=== PATIENT | female | born 1990 | race Caucasian/White ===

== ENCOUNTER 2024-02-01 20:36 | Inpatient (IN) ==
[2024-02-01] MEDS ORDERED: LIDOCAINE 1% LOCAL 20 ML VIAL INFIL PRN (21:07)
[2024-02-01] MEDS ORDERED: OXYTOCIN 30 UNITS/NSS 30 UNITS/500 ML BAG IV PRN (21:07)
[2024-02-01] MEDS: LACTATED RINGER'S 1,000 ML IV PRN (21:46)
[2024-02-01] MEDS: PENICILLIN GK 6 MU in DEXTROSE 5% 250 ML IV STA (21:47)
[2024-02-01 21:51] LABS: Hematocrit (blood only) 35.8 % (37.0-47.0); Mean Corpuscular Hemoglobin 30.8 pg (25.0-34.0); Mean Corpuscular Hgb Conc 33.5 g/dL (32.0-36.0); Mean Platelet Volume 10.5 fL (9.4-12.4); Platelet Count 274 K/uL (130-400); RDW Coefficient of Variation 13.3 % (11.5-14.5); RDW Standard Deviation 44.6 fL (36.4-46.3); Red Blood Count 3.89 M/uL (4.20-5.40); White Blood Count 12.43 K/ul (4.8-10.8)
[2024-02-02] MEDS ORDERED: diphenhydrAMINE 50 MG/ML VIAL IV PRN (01:45)
[2024-02-02] MEDS ORDERED: fentaNYL citrate PF 100 MCG/2 ML VIAL EPI PRN (01:45)
[2024-02-02] MEDS ORDERED: NALBUPHINE HCL 5 MG in SYRINGE 0 ML IV PRN (01:45)
[2024-02-02] MEDS ORDERED: BUPIVACAINE 0.25% PF 30 ML VIAL EPI PRN (01:45)
[2024-02-02] MEDS ORDERED: ePHEDrine sulfate 50 MG/ML AMP IV PRN (01:45)
[2024-02-02] MEDS ORDERED: NALOXONE HCL 0.4 MG/1 ML VIAL/CARP IV PRN (01:45)
[2024-02-02] MEDS ORDERED: LIDOCAINE 2% MPF LOCAL 5 ML VIAL EPI PRN (01:45)
[2024-02-02] MEDS ORDERED: NALOXONE HCL 1 MG in SODIUM CHLORIDE 0.9% 1,000 ML IV PRN (01:45)
[2024-02-02] MEDS ORDERED: SODIUM CHLORIDE 0.9% PF INJ 10 ML VIAL EPI PRN (01:45)
[2024-02-02] MEDS ORDERED: ROPIVACAINE 0.5% PF 5 MG/ML 20 ML VIAL EPI PRN (01:45)
--- NOTE | 2024-02-02 01:45 | Anesthesiology Consultation ---
Date of Service February 02, 2024 Assessment & Plan (1) Encounter for pre-operative examination: Chart Review Chart Review: Patient NOT seen in Pre Admission Testing and Acceptable Risk for Labor Epidural Consults Requested none History Height/Weight Height: 5 ft 7 in Weight: 107.955 kg Allergies Allergy/AdvReac Type Severity Reaction Status Date / Time No Known Allergies Allergy Verified 01/29/24 08:59 Medications Home Medications Medication Instructions Recorded Confirmed Last Taken vit 168-iron 27 mg-folic 1 cap PO 1XD 06/06/23 02/01/24 02/01/24 09:00 acid 800 mcg-omega3 235 mg capsule (One-A-Day -1) Active Medications Generic Name Dose Route Start Last Admin Trade Name Freq PRN Reason Stop Dose Admin Lactated Ringer's 1,000 mls @ 125 mls/hr 02/01/24 21:07 02/01/24 21:46 Lr IV 02/03/24 21:06 125 mls/hr .Q8H PRN Administration L&D Protocol Protocol Past Medical History Medical History Anxiety Patient states that she stopped taking anxiety medication when she got . No pertinent past medical history Past Family History Family History Mother Hypertension Father Hypertension Past Surgical History Surgical History No pertinent past surgical history Social History Smoking Status: Never smoker Hx Alcohol Use: No Hx Substance Use: No substance use type: former substance user Physical Exam Vital Signs Last Vital Signs Temp 98.2 F 02/01/24 22:47 Pulse 68 02/01/24 23:44 Resp 18 02/01/24 20:51 BP 141/73 H 02/01/24 23:44 Testing Laboratory Results 02/01/24 21:27 Blood Type A Positive 02/01/24 Unknown Antibody Screen NEGATIVE 02/01/24 Unknown
[2024-02-02] MEDS: PENICILLIN GK 3 MU in DEXTROSE 5% 100 ML IV PRN (02:00)
[2024-02-02] MEDS: fentANYL 2 MCG/ML BUPIVacaine 0.125%-NSS 100ML BAG ONE ×2 (02:13→14:51)
[2024-02-02] MEDS: LIDOCAINE 2%/EPINEPHRINE 1:200,000 20 ML PF ONE (02:20)
[2024-02-02] MEDS: fentaNYL citrate PF 100 MCG/2 ML VIAL ONE (02:21)
[2024-02-02] MEDS: fentaNYL citrate PF 100 MCG/2 ML VIAL EPI STA (02:21)
[2024-02-02] MEDS: BUPIVACAINE 0.25% PF 30 ML VIAL EPI STA (02:21)
[2024-02-02] MEDS: SODIUM CHLORIDE 0.9% PF INJ 10 ML VIAL EPI STA (02:21)
[2024-02-02] MEDS: LIDOCAINE 2%/EPINEPHRINE 1:200,000 20 ML PF EPI STA (02:21)
[2024-02-02] MEDS: ePHEDrine sulfate 50 MG/ML AMP ONE (02:22)
[2024-02-02] MEDS: SODIUM CHLORIDE 0.9% PF INJ 10 ML VIAL ONE (02:22)
[2024-02-02] MEDS: BUPIVACAINE 0.25% PF 30 ML VIAL ONE (02:22)
[2024-02-02] MEDS ORDERED: NURSING L&D Epidural Breakthrough Pain Update ONE (07:01)
[2024-02-02] MEDS: fentANYL 2 MCG/ML BUPIVacaine 0.125%-NSS 100ML BAG EPI PRN (08:50)
--- NOTE | 2024-02-02 16:07 | Labor Progress Brief Note ---
Date of Service February 02, 2024 Patient has been pushing for 3 hours heart rate is category 1 she is at +2 station I have offered her the vacuum for assistance her bladder was just drained on exam the baby is in occiput anterior position and +2 I worry that she is getting somewhat fatigued and I have relayed this to her certainly this is not a mandatory situation I have advised her the risks of the vacuum including hematoma I have given her some time to talk to her about this and her [id number] discussed risks and benefits I am just worried she is fatiguing may not be able to help us with the vacuum if she gets too fatigued Assessment & Plan Admission and Anticipated Discharge Date Admission Date: February 01, 2024 Results & Data Vital Signs (Past 12 Hours) Vital Signs Temp Pulse Resp BP Pulse Ox 02/02/24 16:00 92 H 99 02/02/24 15:55 92 H 98 02/02/24 15:54 103 H 93 02/02/24 15:52 94 H 131/86 02/02/24 15:50 83 99 02/02/24 15:45 97 H 99 02/02/24 15:40 106 H 99 02/02/24 15:35 108 H 100 02/02/24 15:30 115 H 20 99 02/02/24 15:25 107 H 100 02/02/24 15:21 95 H 142/67 H 02/02/24 15:20 93 H 100 02/02/24 15:16 109 H 89 L 02/02/24 15:15 83 100 02/02/24 15:12 98.1 F 02/02/24 15:11 105 H 84 L 02/02/24 15:10 85 100 02/02/24 15:07 85 139/82 02/02/24 15:06 85 88 L 02/02/24 15:05 82 98 02/02/24 15:00 77 88 L 02/02/24 14:55 87 100 02/02/24 14:51 65 127/72 02/02/24 14:50 77 100 02/02/24 14:45 100 02/02/24 14:45 77 02/02/24 14:45 81 91 02/02/24 14:40 77 100 02/02/24 14:38 86 90 02/02/24 14:36 71 128/58 L 02/02/24 14:35 69 100 02/02/24 14:30 73 20 100 02/02/24 14:28 73 93 02/02/24 14:25 70 100 02/02/24 14:21 81 142/61 H 02/02/24 14:20 105 H 100 02/02/24 14:15 71 18 100 02/02/24 14:10 73 98 02/02/24 14:06 69 129/65 02/02/24 14:05 78 100 02/02/24 14:04 85 93 02/02/24 14:00 76 18 100 02/02/24 13:55 109 H 100 02/02/24 13:50 92 H 99 02/02/24 13:45 70 18 100 02/02/24 13:40 76 99 02/02/24 13:35 78 99 02/02/24 13:30 94 H 18 99 02/02/24 13:25 107 H 100 02/02/24 13:21 84 143/63 H 02/02/24 13:20 84 100 02/02/24 13:15 93 H 89 L 02/02/24 13:10 82 100 02/02/24 13:06 81 135/63 02/02/24 13:05 86 100 02/02/24 13:02 98.1 F 02/02/24 13:00 86 18 100 02/02/24 12:55 98 H 100 02/02/24 12:51 103 H 141/65 H 02/02/24 12:50 120 H 100 02/02/24 12:45 107 H 100 02/02/24 12:40 107 H 100 02/02/24 12:35 111 H 100 02/02/24 12:30 116 H 100 02/02/24 12:29 18 02/02/24 12:29 18 02/02/24 12:25 120 H 100 02/02/24 12:21 101 H 160/72 H 02/02/24 12:20 101 H 100 02/02/24 12:15 92 H 100 02/02/24 12:10 102 H 100 02/02/24 12:06 83 151/60 H 02/02/24 12:05 81 100 02/02/24 12:00 78 100 02/02/24 11:55 89 100 02/02/24 11:50 65 110/60 100 02/02/24 11:45 74 100 02/02/24 11:40 85 100 02/02/24 11:36 132/60 02/02/24 11:35 87 100 02/02/24 11:30 71 14 99 02/02/24 11:25 89 100 02/02/24 11:22 77 135/69 02/02/24 11:20 78 100 02/02/24 11:15 76 98 02/02/24 11:10 84 100 02/02/24 11:06 112 H 130/71 02/02/24 11:05 115 H 98 02/02/24 11:00 99.3 F 87 18 99 02/02/24 10:55 75 99 02/02/24 10:52 81 133/75 02/02/24 10:50 87 98 02/02/24 10:45 88 99 02/02/24 10:40 79 98 02/02/24 10:36 77 136/73 02/02/24 10:35 75 100 02/02/24 10:30 82 16 100 02/02/24 10:25 87 97 02/02/24 10:20 97 02/02/24 10:20 97 H 02/02/24 10:20 100 H 122/76 02/02/24 10:15 94 H 99 02/02/24 10:10 83 98 02/02/24 10:05 94 H 122/79 99 02/02/24 10:00 85 14 100 02/02/24 09:55 81 100 02/02/24 09:52 90 124/76 02/02/24 09:50 90 100 02/02/24 09:45 90 99 02/02/24 09:40 93 H 100 02/02/24 09:35 90 129/76 100 02/02/24 09:34 99 H 93 02/02/24 09:30 86 18 100 02/02/24 09:25 83 100 02/02/24 09:21 100 H 121/76 02/02/24 09:20 98 H 100 02/02/24 09:15 79 100 02/02/24 09:13 99.3 F 02/02/24 09:10 82 98 02/02/24 09:05 83 117/60 100 02/02/24 09:00 100 H 18 99 02/02/24 08:55 81 99 02/02/24 08:51 78 117/58 L 02/02/24 08:50 74 97 02/02/24 08:45 83 100 02/02/24 08:40 78 100 02/02/24 08:37 76 118/55 L 02/02/24 08:35 80 96 02/02/24 08:30 81 18 100 02/02/24 08:25 97 H 100 02/02/24 08:21 79 134/85 02/02/24 08:20 79 100 02/02/24 08:15 81 100 02/02/24 08:10 76 98 02/02/24 08:06 87 134/80 02/02/24 08:05 107 H 100 02/02/24 08:00 124 H 18 99 02/02/24 07:55 86 99 02/02/24 07:52 75 125/73 02/02/24 07:50 71 100 02/02/24 07:45 84 100 02/02/24 07:40 73 100 02/02/24 07:36 72 140/74 02/02/24 07:35 84 99 02/02/24 07:30 80 18 100 02/02/24 07:25 96 H 100 02/02/24 07:21 81 139/76 02/02/24 07:20 76 100 02/02/24 07:15 84 100 02/02/24 07:10 96 H 98 02/02/24 07:09 20 02/02/24 07:09 98.4 F 20 02/02/24 07:06 72 135/76 02/02/24 07:05 84 100 02/02/24 06:51 80 117/69 02/02/24 06:36 78 118/62 02/02/24 06:22 132/63 02/02/24 06:07 78 119/57 L 02/02/24 05:58 97.7 F 02/02/24 05:51 71 115/57 L 02/02/24 05:45 20 02/02/24 05:45 20 02/02/24 05:36 61 107/60 02/02/24 05:30 69 100 02/02/24 05:28 18 02/02/24 05:28 18 02/02/24 05:25 77 100 02/02/24 05:20 71 100 02/02/24 05:15 66 100 02/02/24 05:10 70 100 02/02/24 05:08 20 02/02/24 05:08 20 02/02/24 05:05 66 99 02/02/24 05:00 71 98 02/02/24 04:55 72 100 02/02/24 04:50 76 98 02/02/24 04:45 72 96 02/02/24 04:43 18 02/02/24 04:43 18 02/02/24 04:40 73 96 02/02/24 04:36 97.7 F 02/02/24 04:35 72 97 02/02/24 04:30 66 97 02/02/24 04:25 73 97 02/02/24 04:20 74 18 98 02/02/24 04:15 76 96 02/02/24 04:10 76 97 Coding Level of Care Code None
[2024-02-02] MEDS: OXYTOCIN 30 UNITS/NSS 30 UNITS/500 ML BAG IV PRN (16:30)
[2024-02-02] MEDS ORDERED: bisacodyL 10 MG SUPP PR PRN (16:46)
[2024-02-02] MEDS ORDERED: DIPHTHER/TETAN/PERTUS Vaccine (Tdap, Adol/Adult) 0.5mL IM ONE (16:46)
[2024-02-02] MEDS ORDERED: HYDROCORTISONE ACETATE 25 MG SUPP PR PRN (16:46)
[2024-02-02] MEDS ORDERED: ACETAMINOPHEN 325 MG TAB PO PRN (16:46)
--- NOTE | 2024-02-02 16:51 | Delivery Summary ---
Vaginal Delivery Summary Date of Service February 02, 2024 Vaginal Delivery Summary VAVD and 2nd Degree LAC Vacuum-assisted vaginal delivery The patient been pushing for 3 hours was reaching a point of exhaustion I did offer her vacuum intervention as it was a +2 station the bladder had just been drained examination revealed a baby in occiput anterior position and she did descend the baby well with pushing on around the patient excepted vacuum I discussed risks including cephalohematoma Placed the vacuum it took a total of 3 contractions and 2 pop-off's and then the head was delivered vacuum was detached a small midline episiotomy was made to facilitate delivery of the head At this stage there was a nuchal cord x 3 the cord was clamped and cut after delivery of the head and then once the cord was unwrapped the baby was delivered live vigorous male Cord gases obtained cord blood obtained placenta removed with traction IV Pitocin started cord gases obtained There was a midline repair to fix which was repaired with 3-0 Vicryl there was no involvement of the rectal muscle or mucosa after full repair sponge and instrument counts correct QBL was 310 mL [facility] Vaginal Delivery Charge Delivery Type Details: VAVD and 2nd Degree LAC
[2024-02-02 17:10] LABS: Base Excess Cord Arterial Bld -6.2 mEq/L (-9-1.8); CO2 Cord Arterial Blood 52 mmHg (39.1-73.5); Cord Venous Blood HCO3 18 mmol/L (18.4-26.8); Cord Venous Blood PCO2 33 mmHg (30.4-57.2); Cord Venous Blood PO2 32 mmHg (14.1-43.3); Cord Venous Blood pH 7.34 (7.20-7.44); HCO3 Cord Arterial Blood 22 mmol/L (19.7-28.5); O2 Saturation Cord Venous Bld 66.9 % (<68); Oxygen Sat Cord Arterial Blood < 60.0 % (<60); PO2 Cord Arterial Blood < 20 mmHg (4.1-31.7); pH Cord Arterial Blood 7.23 (7.1-7.38)
[2024-02-02] MEDS: IBUPROFEN 600 MG TAB PO PRN (17:45)
[2024-02-02] MEDS: BENZOCAINE 20% SPRY 85 APPLN/85 GM CAN EXT PRN (17:45)
--- NOTE | 2024-02-02 18:21 | Anesthesia Procedure Note ---
Date of Service February 02, 2024 Anesthesia Post Epidural Note Vital Signs Vital Signs: Temp Pulse Resp BP Pulse Ox 36.5 C 114 H 14 127/59 L 99 02/02/24 17:23 02/02/24 18:08 02/02/24 17:23 02/02/24 18:08 02/02/24 16:35 Pain Intensity Abdomen: Pain Intensity: 3 Notes Mental Status: alert / awake / arousable and participated in evaluation Nausea / Vomiting: adequately controlled Pain: adequately controlled Airway Patency, RR, SpO2: stable & adequate BP & HR: stable & adequate Hydration State: stable & adequate Neuraxial Anesthesia: was administered and sensory block is resolving Anesthetic Complications: no major complications apparent and Pt Satisfied with anesthetic care Epidural: Removed without complications and With tip intact
[2024-02-03 06:21] LABS: Hematocrit (blood only) 29.8 % (37.0-47.0); Hemoglobin 9.9 g/dl (12.0-16.0); Mean Corpuscular Hemoglobin 30.9 pg (25.0-34.0); Mean Corpuscular Hgb Conc 33.2 g/dL (32.0-36.0); Mean Corpuscular Volume 93.1 fL (80.0-100.0); Mean Platelet Volume 10.4 fL (9.4-12.4); Platelet Count 215 K/uL (130-400); RDW Coefficient of Variation 13.6 % (11.5-14.5); RDW Standard Deviation 45.7 fL (36.4-46.3); White Blood Count 16.27 K/ul (4.8-10.8)
[2024-02-03] MEDS: DOCUSATE SODIUM 100 MG CAP PO SCH (08:53)
[2024-02-03] MEDS: PRENATAL VITAMIN 1 TAB PO SCH (08:53)
--- NOTE | 2024-02-03 09:27 | Obstetrical Progress Note ---
Date of Service <Arias Culp DO - Last Filed: 02/03/24 09:33> February 03, 2024 Assessment & Plan <Arias Culp DO - Last Filed: 02/03/24 09:33> (1) Encounter for assessment: Patient is PPD 1 s/p VAVD and doing well - Eating well, voiding well, ambulating well - Can stop taking baby aspirin that was recommended when covid positive - vitals reviewed and within normal limits - pain well controlled with analgesics - OOB, ambulation, diet progression as tolerated - Blood type: A positive, GBS carrier, rubella immune - Plan to discharge tomorrow - After discharge, 6 week follow up with Dr. Bishop visit type: exam and care immediately after delivery Qualified Code(s): Z39.0 - Encounter for care and examination of mother imme diately after delivery <Hira Bishop MD, FACOG - Last Filed: 02/04/24 07:45> (1) Encounter for assessment: Subjective <Arias Culp DO - Last Filed: 02/03/24 09:33> 33 yo post- day 1 s/p VAVD Ambulation: ambulating normally Voiding: no voiding problems Passing Gas:: Yes Diet Tolerance:: regular diet Lochia:: Small Feeding Type:: breast feeding Current Pain Level: 3/10 Resting comfortably this AM in NAD. Review of Systems Patient Denies: Fevers/chills/night sweats, headache Shortness of breath, coughing, wheezing Chest pain, pressure, or palpitations Breast pain or discharge Dysuria, incontinence Nausea, vomiting Lower extremity edema, pain, or tenderness Physical Exam <Arias Culp DO - Last Filed: 02/03/24 09:33> General: patient resting comfortably, NAD, non-toxic in appearance, answers questions appropriately. Skin: warm, dry, intact HEENT: NC/AT, anicteric sclera, conjunctiva without injection, moist mucus membranes. Heart: +S1/S2, regular rate and rhythm, no murmur Lungs: equal air entry bilaterally, no rales/rhonchi/wheezes Abd: +BS, soft, NT/ND, uterine fundus firm at umbilicus Ext: warm, no clubbing/cyanosis or edema, Bala's neg. Neuro: nonfocal, speech intact, no facial droop, moving all extremities. Results & Data <Arias Culp, DO - Last Filed: 02/03/24 09:33> Vital Signs (Past 12 Hours) Vital Signs Temp Pulse Resp BP O2 Del Method 02/03/24 04:20 36.7 C 88 16 103/66 Room Air 02/03/24 00:25 36.5 C 99 H 16 113/75 Room Air Laboratory Results Labs Lab Results OB Labs: Blood Type A Positive 06/13/23 Antibody Screen NEGATIVE 06/13/23 Hemoglobin 12.5 g/dl (12.0-16.0) 11/13/23 Hematocrit 37.1 % (37.0-47.0) 11/13/23 Mean Corpuscular Volume 89.8 fL (80.0-100.0) 06/13/23 Platelet Count 324 K/uL (130-400) 06/13/23 Rubella IgG Antibody Immune (Immune) 06/13/23 Rapid Plasma Reagin Nonreactive (Nonreactive) 06/13/23 Hepatitis B Surface Antigen. NON-REACTIVE (NON-REACTIVE) 06/13/23 Hepatitis C Antibody (EIA) NON-REACTIVE (NON-REACTIVE) 06/13/23 HIV (1&2) Ag and Ab Confirmation NON-REACTIVE (NON-REACTIVE) 06/13/23 Glucose 1 Hour 50 gm Load 88 mg/dl (70-130) 11/13/23 OB Optional Labs: Chlamydia trachomatis RNA Not Detected (NotDetected) 06/13/23 Neisseria gonorrhoeae RNA Not Detected (NotDetected) 06/13/23 Diagnostic Findings OB Visit Log Initial Weight: 188 lb 6.4 oz Date EGA Weight FH Pres FHR FM CX BP Alb Glu Edema NOV Prov Notes 06/06/23 5w 0d NOB nurse visit see comments, HK 06/13/23 6w 0d 188 lb 6.4 oz(+0 oz) 5 ?[facility] LTC 132/78 2w [facility] NOB labs, uacs - AL 06/27/23 8w 0d 192 lb(+3 lb 9.6 oz) +US +US 134/76 0 4w JBS SP 07/24/23 11w 6d 190 lb 12.8 oz(+2 lb 6.4 oz) 150s 1 0 4w MLN MK Panorama today- MK 08/20/23 15w 5d 193 lb 6.4 oz(+5 lb) 150s 126/84 0 4w MLN [facility] safp - SP 09/17/23 19w 5d 197 lb 6.4 oz(+9 lb) +US 126/80 0 4w KBB MK 10/16/23 23w 6d 204 lb(+15 lb 9.6 oz) 24 155 Active 130/80 0 4w SMP SP 11/13/23 27w 6d 213 lb(+24 lb 9.6 oz) 28 150 Active 118/78 0 2w [facility] 28wk labs, UA, 1hr gtt, Tdap, Papers, C/O right hand numbness - SUMAYA 11/27/23 29w 6d 214 lb(+25 lb 9.6 oz) 30 140s Active 112/76 0 2w SLN SUMAYA 12/11/23 31w 6d 220 lb(+31 lb 9.6 oz) 33 US Active 122/80 0 2w JFD MK 12/25/23 33w 6d 224 lb 3.2 oz(+35 lb 12.8 oz) 35 140s Active 124/82 0 2w MLN SP 01/08/24 35w 6d 228 lb(+39 lb 9.6 oz) 37 V +US Active 130/86 0 1w SLN SP 01/16/24 37w 0d 231 lb 3.2 oz(+42 lb 12.8 oz) 36 V 160 Active 134/86 0 1w SMP SP GBS today - SP 01/23/24 38w 0d 235 lb(+46 lb 9.6 oz) 39 140s Active 136/84 TR 1w AKH MK 01/29/24 38w 6d 238 lb 3.2 oz(+49 lb 12.8 oz) term V 130 Active 128/82 TR 1w KBB SP Supervising Physician <Hira Bishop MD, FACOG - Last Filed: 02/04/24 07:45> Co-Signing Physician Notes Resident Physician Supervision Note: I interviewed and examined the patient. Discussed with [Name of resident] and agree with findings and plan as documented in the note. Any exceptions or clarifications are listed here: [None] Documented By: [facility] Resident Activity Tracking <Arias Culp DO - Last Filed: 02/03/24 09:33> Resident Involvement: Resident Care Provided Care Provided: OB Delivery
[2024-02-03] MEDS: oxyCODONE/ACETAMINOPHEN 5mg/325mg TAB PO PRN (18:08)
[2024-02-03] MEDS: bisacodyL 5 MG TABEC PO SCH (19:51)
--- NOTE | 2024-02-04 07:10 | Obstetrical Progress Note ---
Date of Service <Arias Culp DO - Last Filed: 02/04/24 07:13> February 04, 2024 Assessment & Plan <Arias Culp DO - Last Filed: 02/04/24 07:13> (1) Encounter for assessment: Patient is PPD 2 s/p VAVD and doing well - Eating well, voiding well, ambulating well - Can stop taking baby aspirin that was recommended when covid positive - vitals reviewed and within normal limits - pain well controlled with analgesics - OOB, ambulation, diet progression as tolerated - Blood type: A positive, GBS carrier, rubella immune - Plan to discharge today - After discharge, 6 week follow up with Dr. Bishop visit type: exam and care immediately after delivery Qualified Code(s): Z39.0 - Encounter for care and examination of mother immedi ately after delivery <Lila Schaffer MD - Last Filed: 02/04/24 07:18> (1) Encounter for assessment: Subjective <Arias Culp DO - Last Filed: 02/04/24 07:13> 33 yo post- day 2 s/p VAVD Ambulation: ambulating normally Voiding: no voiding problems Passing Gas:: Yes Diet Tolerance:: regular diet Lochia:: Small Feeding Type:: bottle feeding Current Pain Level: 3/10 Resting comfortably this AM in NAD. Denies AVILA, CP, SOB, N/V/D, LE pain/swelling. Physical Exam <Arias Culp DO - Last Filed: 02/04/24 07:13> General: patient resting comfortably, NAD, non-toxic in appearance, answers questions appropriately. Skin: warm, dry, intact HEENT: NC/AT, anicteric sclera, conjunctiva without injection, moist mucus m embranes. Heart: +S1/S2, regular rate and rhythm, no murmur Lungs: equal air entry bilaterally, no rales/rhonchi/wheezes Abd: +BS, soft, NT/ND, uterine fundus firm at umbilicus Ext: warm, no clubbing/cyanosis or edema, Bala's neg. Neuro: nonfocal, speech intact, no facial droop, moving all extremities. Results & Data <Arias Culp DO - Last Filed: 02/04/24 07:13> Vital Signs (Past 12 Hours) Vital Signs Temp Pulse Resp BP Pulse Ox O2 Del Method 02/04/24 04:02 36.7 C 92 H 18 110/67 98 Room Air 02/03/24 19:54 36.7 C 98 H 18 127/85 99 Room Air Supervising Physician <Lila Schaffer MD - Last Filed: 02/04/24 07:18> Co-Signing Physician Notes Resident Physician Supervision Note: I interviewed and examined the patient. Discussed with Dr. Culp and agree with findings and plan as documented in the note. Any exceptions or clarifications are listed here: [ ] Documented By: Lila Schaffer MD, FACOG Resident Activity Tracking <Arias Culp DO - Last Filed: 02/04/24 07:13> Resident Involvement: Resident Care Provided Care Provided: OB Delivery
[2024-02-04 08:06] LABS: Hematocrit (blood only) 28.2 % (37.0-47.0); Hemoglobin 9.3 g/dl (12.0-16.0)
--- NOTE | 2024-02-07 05:05 | Coding Query ---
CODING QUERY To promote full compliance with coding requirements relating to patient care, provider participation is requested in all cases of repair department manager uncertainty. Please assist us with the question(s) below: Coding Question(s): Pt weeks of gestation was not documented. Please clarify weeks of gestation. 39 weeks Physician's Response(s): Thank you Yadira Sharad Principal Diagnosis: "that condition established after study, to be chiefly responsible for occasioning the admission of the patient to the hospital for care." Co-Existing Principal Diagnosis: "when two or more diagnoses equally meet the criteria for principal diagnosis as determined by the circumstances of admission, diagnostic work up, and/or therapy provided, and the Alphabetic Index, Tabular List, or another coding guideline does not provide sequencing direction, any one of the diagnoses may be sequenced first." "When the physician has documented what appears to be a current diagnosis in the body of the record, but has not included the diagnosis in the final diagnostic statement, the physician should be asked whether the diagnosis should be added." (Source Coding [facility] 2 QTR90. p3-4) [facility]
== END 2024-02-04 11:37 | disposition home or self-care (01) | DRG 807 ==
LOC: OPB 20:36 → 4S1 20:37 → 4E2 02-02 19:52